=== PATIENT | female | born 2000 | race Caucasian/White ===

== ENCOUNTER 2018-02-06 21:51 | Emergency (ER) | payer MEDICAID ==
[~2018-02-06] VITALS: Ht 157.5 cm; Wt 53.1 kg
[~2018-02-06 21:51] MED LIST: NKM
[2018-02-06 22:15] VITALS: BP 125/75
[2018-02-06] MEDS ORDERED: IBUPROFEN600 MG ORAL (22:18)
--- NOTE | 2018-02-06 22:19 | Emergency Room Report ---
History of Present Illness General Chief Complaint: Upper Respiratory Illness Source: Patient Present Illness HPI Is a 17-year-old female with no past medical history. She presents with chief complaint of sore throat, ear pain, cough and congestion and fever. Onset last night. Her sister is here for the same thing. No nausea no vomiting. Worse with swallowing. Better with rest. Denies any diarrhea or vomiting. Pain is 7 out of 10. Has not taken Anything for it. Allergies: Coded Allergies: No Known Allergies (Unverified , 08/20/13) Patient History Past Medical History: see triage record, old chart reviewed Past Surgical History: none Pertinent Family History: none Social History: Denies: smoking Last Menstrual Period: 01/16/18 Now: No : 0 Immunizations: UTD Reviewed Nursing Documentation: PMH: Agreed; PSxH: Agreed Nursing Documentation-PMH Past Medical History: No Stated History Review of Systems Constitutional: Reports: fever Eye: Denies: eye pain, blurred vision ENT: Reports: ear pain, throat pain Respiratory: Reports: cough Cardiovascular: Denies: chest pain, palpitations Gastrointestinal: Denies: abdominal pain, diarrhea, nausea, vomiting Musculoskeletal: Denies: back pain, joint pain Skin: Denies: rash Neurological: Denies: headache, numbness Endocrine: Denies: increased thirst, increased urine Hematologic/Lymphatic: Denies: easy bruising All Other Systems: negative except mentioned in HPI Physical Exam Vital Signs Date Time Temp Pulse Resp B/P (MAP) Pulse Ox O2 Delivery O2 Flow Rate FiO2 02/06/18 22:02 99.0 99 16 125/75 98 Room Air 99.0 vitals unremarkable Sp02 EP Interpretation: reviewed, normal General Appearance: well appearing, no apparent distress, alert Head: normocephalic, atraumatic Eyes: bilateral eye PERRL, bilateral eye EOMI ENT: hearing grossly normal, tonsillar swelling, pharyngeal erythema Neck: full range of motion, supple, no meningismus Respiratory: chest non-tender, lungs clear, normal breath sounds Cardiovascular #1: regular rate, rhythm, no murmur Gastrointestinal: normal bowel sounds, non tender, no mass, no organomegaly, no bruit, non-distended Musculoskeletal: back normal, gait/station normal, normal range of motion Psychiatric: mood/affect normal Skin: warm/dry Medical Decision Making Diagnostic Impression: Primary Impression: Upper respiratory infection Qualified Codes: J06.9 - Acute upper respiratory infection, unspecified ER Course Patient with a viral upper rest or infection. No evidence of bacterial infection. No evidence any strep throat, retropharyngeal abscess or peritonsillar abscess. Last Vital Signs Date Time Temp Pulse Resp B/P (MAP) Pulse Ox O2 Delivery O2 Flow Rate FiO2 02/06/18 22:02 99.0 99 16 125/75 98 Room Air 99.0 Status: unchanged Disposition: HOME, SELF-CARE Condition: Stable Scripts Ibuprofen* (MOTRIN*) 600 Mg Tablet 600 MG ORAL THREE TIMES A DAY, #30 TAB 0 Refills Prov: Owen Laguna MD 02/06/18 Patient Instructions: Upper Respiratory Infection, Adult Additional Instructions: Increase fluids. Salt water gargle. Follow-up with your doctor in 7 days. Return if worse. Owen Laguna MD Feb 06, 2018 22:19
[2018-02-06 22:40] VITALS: BP 125/75
== END 2018-02-06 22:40 | disposition home or self-care (01) ==
LOC: EMR 22:15
DX: J06.9 Acute upper respiratory infection, unspecified (principal)
CPT/HCPCS: 99282